=== PATIENT | male | born 2005 | race Caucasian/White ===

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

== ENCOUNTER 2024-02-29 18:36 | Emergency (ER) | payer OTHER, SELFPAY ==
--- NOTE | ~2024-02-29 | XR_ITS ---
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 RESULT: Lines, tubes, and devices: None. Lungs and pleura: Clear. Cardiomediastinal silhouette: Normal. Other: No acute osseous or upper abdominal finding. IMPRESSION: No acute cardiopulmonary process. Reviewed, dictated and finalized at location K.
--- NOTE | 2024-02-29 18:45 | ECG_ITS ---
Test Date: 2024-02-29 18:52:34 Measurements Intervals [place] Rate: 90 P: 75 ME: 136 QRS: 47 QRSD: 87 T: 26 QT: 322 QTc: 394 Interpretive Statements SINUS RHYTHM WITH MARKED SINUS ARRHYTHMIA POSSIBLE LEFT ATRIAL ENLARGEMENT RSR' IN V1 OR V2, PROBABLY NORMAL VARIANT BORDERLINE ST-T WAVE ABNORMALITY- INFERIOR LEADS BORDERLINE ECG No previous ECG available for comparison Electronically Signed On 02-29-2024 20:44:10 CDT by Sebastián Mitchell D.O.
[2024-02-29 19:18] VITALS: BP 127/80; PULSE 83; RESP 16; TEMP 36.9; O2SAT 99
--- NOTE | 2024-02-29 19:30 | ED.CHESTPAIN ---
HPI - Chest Pain General Chief Complaint: Chest Pain Stated Complaint: right sided chest pain Time Seen by Provider: 02/29/24 19:22 History of Present Illness HPI narrative: Patient is a healthy 19 year old male with history of traumatic skull fracture 1 year ago, here with right sided chest pain. Patient notes pain began about 2.5 hours ago after coming in from fishing. He notes pain is sharp, located over his right chest wall and radiates under his right axilla and right shoulder blade. Pain is worse with deep breaths and movements. He took no medication to help relieve his pains prior to presentation. He denies recent trauma aside from use while fishing today and helping family move a washing machine this morning. No personal history of PE/DVT, cardiac issues. No leg swelling, calf pain, recent travel, recent surgeries. No family history of cardiac problems. He denies cough, congestion, fever, chills, abdominal pain, diarrhea. Related Data Allergies Allergy/AdvReac Type Severity Reaction Status Date / Time No Known Allergies Allergy Verified 02/29/24 18:48 Review of Systems Review of Systems: All systems reviewed & are unremarkable except as noted in HPI and below Exam Narrative: GENERAL: Well-appearing, well-nourished, and in no acute distress. HEAD: Normocephalic, atraumatic. EYES: PERRLA and EOMI. ENT: Nares clear. Mucous membranes moist. NECK: Supple. CHEST: Clear to auscultation. No respiratory distress. HEART: Regular rate and rhythm. Normal peripheral pulses. Reproducible tenderness over the right pectoral muscle, underneath the right axilla and over the scapula on the right side. ABDOMEN: Soft, nontender, nondistended. EXTREMITIES: Normal range of motion. No edema. No calf tenderness. Bilateral shoulders nontender with normal range of motion. SKIN: Warm, dry, no rash. NEURO: No focal deficits. Alert and oriented x3. PSYCH: Normal mood and affect. Course Course Emergency Course: Chart review performed. Patient here with right chest/back pain. Believes he may have injured himself fishing this morning or moving a washing machine. Triage vitals normal. No prior visits in our system. Patient seen evaluated, nontoxic appearing, alert, oriented. Low risk for ACS, will do screening EKG. Will additionally do CXR. PERC rule applied, PE unlikely. Toradol and flexeril ordered for pain. Patient agreeable to workup and plan. EKG reassuring. CXR negative. Patient reevaluated, has had some pain relief with medications given here. Will send in flexeril and ibuprofen into pharmacy. The results of pertinent diagnostic studies and exam findings were discussed. The patient?s provisional diagnosis and plan of care were discussed with the patient and present family. The patient and/or present family expressed understanding of the diagnosis and plan. The nurse was instructed to provide written instructions and appropriate follow-up information. The patient understands their need and responsibility to obtain additional follow-up as instructed. The risks of medications administered and prescribed were discussed with the patient and family present. Vital Signs Vital signs: Vital Signs Temperature 98.4 F 02/29/24 19:18 Pulse Rate 83 02/29/24 19:18 Respiratory Rate 16 02/29/24 19:18 Blood Pressure 127/80 02/29/24 19:18 Pulse Oximetry 99 02/29/24 19:18 Temperature 98.4 F 02/29/24 19:18 Pulse Rate 90 02/29/24 20:58 Respiratory Rate 12 02/29/24 20:58 Blood Pressure 127/80 02/29/24 19:18 Pulse Oximetry 100 02/29/24 20:58 MDM - Chest Pain Imaging Data Radiologist's impression: ITS Impressions Chest X-Ray 02/29/24 20:10 IMPRESSION: No acute cardiopulmonary process. ECG Data EKG #1: Attestation: I personally reviewed and interpreted this ECG as follows: ECG completion date: 02/29/24 ECG completion time: 18:52 Prior ECG tracings: not available f
[2024-02-29] MEDS: KETOROLAC 30 MG/ML VIAL (*BKC) 15 MG IM (20:11)
[2024-02-29] MEDS: CYCLOBENZAPRINE HCL 10 MG TABLET PO (20:11)
[2024-02-29 20:58] VITALS: PULSE 90; RESP 12; O2SAT 100
== END 2024-02-29 20:58 | disposition home or self-care (01) ==
PROVIDERS: Emergency Provider Student in an Organized Health Care Education/Training Program; PCP Emergency Medicine
DX: R07.89 Other chest pain (principal); R94.31 Abnormal electrocardiogram [ECG] [EKG]
CPT/HCPCS: 71046; 93005; 96372; 99283; A9270; J1885